=== PATIENT | female | born 1990 | race Caucasian/White ===

== ENCOUNTER → 2017-01-07 | Day surgery (SDC) | payer BC ==
[~2017-01-07] VITALS: Ht 167.6 cm; Wt 79.2 kg
[~2017-01-07] MED LIST: CHLORHEXIDINE GLUCONATE 2 % 1 PACK (2 CLOTHS) TOPICAL PRN; DEXAMETHASONE SOD PHOS 4 MG/ML VIAL IV ONE; DO NOT ADM ANY ANTICOAGULANT DRUGS PRN; FERRIC SUBSULFATE 8 ML TOP SOLN TOPICAL ONE; GLYCOPYRROLATE 1 MG/5 ML SYRINGE IV PUSH ONE; KETOROLAC TROMETHAMINE 30 MG/ML (IVP) VIAL IV PUSH ONE; LACTATED RINGER'S 1000 ML IV PRN; LIDOCAINE 0.5%/EPINEPHrine 1:200,000 SOLN 50 ML VIAL ONE; LIDOCAINE HCL 1% PF 5 ML SYRINGE OTHER ONE; METOPROLOL TARTRATE 25 MG TAB PO PRN; MIDAZOLAM HCL 2 MG/2 ML VIAL IV ONE; MULT1TAB46 PO; NEOSTIGMINE 3 MG/3 ML SYR IV ONE; ONDANSETRON HCL 4 MG/2 ML VIAL IV PUSH ONE; POVIDONE IODINE 5% (ANTISEPSIS KIT) 4 APPLICATIONS EACH NARE PRN; PROPOFOL 200 MG/20 ML AMP IV ONE; ROCURONIUM INJ 50 MG/5 ML SYRINGE IV PUSH ONE; SODIUM CHLORID 0.9% 500 ML IV PRN; ceFAZolin 2 GM PREMIX 0 ML ONE; ceFAZolin INJ 1,000 MG VIAL ONE; oxyCODONE/ACETAMINOPHEN 10 MG/325 MG TAB ONE; oxyCODONE/ACETAMINOPHEN 10 MG/325 MG TAB PO PRN
[2017-01-07 12:38] LABS: AUTOMATED NEUTROPHIL # 2.1 TH/MM3 (1.8-7.7); BASOPHIL % 0.6 % (0.0-2.0); EOSINOPHIL # 0.1 TH/MM3 (0-0.4); HEMATOCRIT 35.5 % (35.0-46.0); LYMPH % 66.8 % (9.0-44.0); LYMPHOCYTE # 5.3 TH/MM3 (1.0-4.8); MEAN CELL VOLUME 81.6 FL (80.0-100.0); MEAN CORPUSCULAR HEMOGLOBIN 26.7 PG (27.0-34.0); MEAN CORPUSCULAR HGB CONC 32.7 % (32.0-36.0); MONO % 4.5 % (0.0-8.0); NEUT % 27.1 % (16.0-70.0); PLATELET COUNT 367 TH/MM3 (150-450); RED BLOOD COUNT 4.35 MIL/MM3 (4.00-5.30); RED CELL DISTRIBUTION WIDTH 14.8 % (11.6-17.2); WHITE BLOOD COUNT 7.9 TH/MM3 (4.0-11.0)
[2017-01-07 12:40] LABS: HEMO FLAGS AUTO DIFF
[2017-01-07 13:36] LABS: ATYPICAL LYMPHOCYTES 8 % (0-0); NEUTROPHIL # MANUAL DIFF 2.4 TH/MM3 (1.8-7.7); POLYS (SEG NEUTROPHILS) 30 % (16-70); WBC DIFF SAMPLE 100
[2017-01-07 13:37] LABS: PLATELET ESTIMATE SMEAR NORMAL (NORMAL); PLATELET MORPHOLOGY NORMAL (NORMAL); SCAN/DIFF FINAL DIFF MANUAL
[2017-01-07 15:41] VITALS: BP 97/62; PULSE 63; RESP 18; TEMP 97.7; O2SAT 100
--- NOTE | 2017-01-11 19:16 | MP ---
cc: KINGSTON LARA DATE OF SURGERY: 01/07/2017 PREOPERATIVE DIAGNOSIS: Pilonidal cyst and sinuses. POSTOPERATIVE DIAGNOSIS Excision of pilonidal cyst and sinuses. ANESTHESIA: General endotracheal anesthesia. SURGEON Dr. Lara ESTIMATED BLOOD LOSS Minimal. OPERATIVE FINDINGS This patient had a small area of pilonidal cyst and sinus disease, probably measuring about 3-4 cm in length. There were several sinuses present. The area was excised fully excising the indurated fatty tissue. OPERATIVE TECHNIQUE The patient was placed on the table in the prone position. After adequate general endotracheal anesthesia, the area was injected with 0.5% Xylocaine with epinephrine using approximately 50 cc. A small elliptical incision was made around the pilonidal sinus tracts and down into the subcutaneous tissue, excising the firm and indurated tissue. The pilonidal region was fully excised and the area was left without any disease. Hemostasis was maintained throughout with electrocautery and then the wound was coated in Monsel's solution and packed with 4x4 gauzes. Sponge, needle and instrument counts were reported as correct. The estimated blood loss was minimal. The patient tolerated the procedure well and left the operating room in good condition. MD LANA Bryan/PABLITO /6:05 PM /7:03 PM
== END | disposition home or self-care (01) ==
LOC: HSDC 11:49
PROVIDERS: ATTEND Colon & Rectal Surgery
DX: L05.91 Pilonidal cyst without abscess (principal)
CPT/HCPCS: 00300; 11770; 85007; 85027; 88304; J0690; J1100; J1885; J2250; J2405; J2710; J3010; J7120